=== PATIENT | male | born 1935 | race Caucasian/White ===

== ENCOUNTER 2017-03-18 16:12 | Emergency (ER) | payer MEDICARE ==
[2017-03-18] MEDS ORDERED: Aspirin Low Dose CHEW TAB* 81 MG PO ONE (17:21)
[2017-03-18 17:46] LABS: Hematocrit 40 % (42-52); Hemoglobin 13.8 g/dl (14.0-18.0); Mean Corpuscular HGB Conc 35 g/dl (31-36); Mean Corpuscular Hemoglobin 33 pg (27-31); Mean Corpuscular Volume 97 fL (80-94); Mean Platelet Volume 7 um3 (7.4-10.4); Red Blood Count 4.14 10^6/ul (4.0-5.4); Red Cell Distribution Width 15 % (10.5-15); White Blood Count 8.3 10^3/ul (3.5-10.8)
[2017-03-18 17:59] LABS: Albumin 3.7 g/dL (3.2-5.2); BUN/Creatinine Ratio 23.5 (8-20); Calcium 9.5 mg/dL (8.6-10.3); EGFR African American 117.3 (>60); EGFR Non-African American 91.2 (>60); Globulin 3.4 g/dL (2-4); Potassium 3.4 mmol/L (3.5-5.0); Total Bilirubin 0.7 mg/dL (0.2-1.0); Total Protein 7.1 g/dL (6.4-8.9)
[2017-03-18] MEDS ORDERED: Potassium Chlor TAB* 20 MEQ TAB.ER PO ONE (18:17)
[2017-03-18] MEDS ORDERED: Iohexol 350* (CONTRAST) 500 ML MDV IV ONE (18:53)
[2017-03-18 19:19] VITALS: BP 114/75
--- NOTE | 2017-03-18 19:42 | RAD ---
INDICATION: Decreased bilateral lower extremity pulses. COMPARISON: July 10, 2003. TECHNIQUE: Multidetector CT images were obtained from the lung bases to the feet with 125 mL Omnipaque 350 IV contrast. Full [id number] routine arterial phase and delayed arterial phase of the lower legs. Multiplanar reformation without and with maximum intensity projection. 3-D arterial volume rendering. REPORT: ABDOMINAL AORTA: Severe atherosclerotic plaque of the abdominal aorta with ulcerated plaque along the RIGHT posterior margin at the infrarenal segment. Negative for hemodynamic significant stenosis of the abdominal aorta or aneurysm. Patent celiac axis. Atherosclerotic plaque results in less than 50% stenosis at the SMA. While small size and presence of calcific plaque limits assessment there is suggestion of greater than 60% stenosis at the proximal segment of the bilateral solitary renal arteries. Normal opacification of the inferior mesenteric artery. RIGHT ILIAC and LOWER EXTREMITY ARTERIES: Approximate 50% short segment stenosis at the RIGHT common iliac artery. Multiple stenoses of the RIGHT external iliac artery measuring up to 70%. Up to 60% stenosis at the common femoral artery. Severe segmental stenoses of the superficial femoral artery due to calcific plaque with occlusion at the adductor canal. Collateral reconstitution of the suprageniculate popliteal artery. Calcific plaque results in approximate 50% stenoses at the distal popliteal artery and tibioperoneal trunk. Only faint posterior tibial and peroneal runoff to the RIGHT ankle. Severe RIGHT infrageniculate soft tissue edema. LEFT ILIAC and LOWER EXTREMITY ARTERIES: Occluded LEFT common iliac artery. Collateral reconstitution of the distal external iliac artery. Calcific plaque results in gross complete occlusion of the common femoral artery. Collateral reconstitution of the distal common femoral artery. Segmental stenoses of the superficial femoral artery estimated at greater than 70%. Up to 60% stenoses at the popliteal artery. Only faint 2 vessel runoff to the LEFT ankle at the tibialis posterior and peroneal artery. Severe LEFT infrageniculate soft tissue edema. NON-VASCULAR FINDINGS: Mild RIGHT basilar subsegmental atelectasis. Coronary artery calcifications. Assessment of the abdominal pelvic viscera is limited due to arterial only phase of contrast enhancement. Unremarkable liver and gallbladder. Atrophic pancreas. Multiple calcified granulomas at the normal sized spleen. Negative for CT abnormality of the upper GI, small bowel, or retrocecal appendix. Severe colonic diverticulosis most marked at the descending colon and sigmoid colon without findings of acute diverticulitis. Negative for ascites, free air, hernias. Normal adrenal glands. Symmetric cortical phase enhancement of the kidneys. No conspicuous focal renal lesions or hydronephrosis. Unremarkable nondilated ureters and urinary bladder. Unremarkable seminal vesicles. Negative for lymphadenopathy. Negative for suspicious focal osseous lesions. IMPRESSION: 1. Severe peripheral vascular disease as described. Hemodynamic significant bilateral inflow disease and intrinsic lower extremity stenoses and occlusions with only faint 2 vessel runoff to the bilateral ankles with progression compared with the 2004 exam. 2. Severe bilateral renal artery stenosis with progression compared with the 2004 exam.
--- NOTE | 2017-03-21 07:19 | ED ---
Laci Solitario Angela, scribed for Anam Conklin MD on 03/18/17 at 1646 . Lower Extremity - HPI Summary HPI Summary: This pt is a 82 y/o male, accompanied by his daughter, presenting to [facility] c/o bilateral LE pain, redness, and swelling for 15 years now. Per daughter, pt was at his PCP's office today (Dr. Hatfield) and was told to come to the ED. Daughter reports the pt had pain on his bilateral LE from just trying to wash his feet. Pt notes he didn't have pulses on the left lower extremity over 10 years ago. Daughter states the pt has an appointment on May [address] Magaña for pain management. Pt is heavy every day tobacco smoker. PMHx includes HTN. - History of Current Complaint Chief Complaint: EDExtremityLower Stated Complaint: SWELLING IN FEET Time Seen by Provider: 03/18/17 16:40 Hx Obtained From: Patient, Family/Server Cashier - daughter Mechanism Of Injury: Other - none Onset/Duration: Weeks Severity Initially: Severe Severity Currently: Severe Pain Intensity: 8 Pain Scale Used: 0-10 Numeric Timing: Lasting Weeks Location: Is Discrete @ - bilateral lower extremities Associated Signs And Symptoms: Positive: Swelling, Redness Aggravating Factor(s): Other - palpation PMH/Surg Hx/FS Hx/Imm Hx Cardiovascular History: Reports: Hx Hypercholesterolemia, Hx Hypertension Musculoskeletal History: Reports: Other Musculoskeletal History - lymphedema Infectious Disease History: No Infectious Disease History: Denies: Traveled Outside the [place] in Last 30 Days - Family History Known Family History: Negative: Cardiac Disease, Diabetes - Social History Alcohol Use: None Substance Use Type: Reports: None Smoking Status (MU): Heavy Every Day Tobacco Smoker Review of Systems Negative: Fever, Chills Eyes: Negative ENT: Negative Cardiovascular: Negative Musculoskeletal: Other - pain in bilateral LE Positive: Edema - bilateral LE Skin: Other - redness in bilateral lower extremities All Other Systems Reviewed And Are Negative: Yes Physical Exam - Summary Physical Exam Summary: VITAL SIGNS: Reviewed. GENERAL: Patient is an elderly male who is alert and oriented x3. Patient is not in any acute respiratory distress. HEAD AND FACE: No signs of trauma. No ecchymosis, hematomas or skull depressions. No sinus tenderness. EYES: PERRLA, EOMI x 2, No injected conjunctiva, no nystagmus. EARS: Hearing grossly intact. Ear canals and tympanic membranes are within normal limits. MOUTH: Oropharynx within normal limits. NECK: Supple, trachea is midline, no adenopathy, no JVD, no carotid bruit, no c- spine tenderness, neck with full ROM. CHEST: Symmetric, no tenderness at palpation LUNGS: Clear to auscultation bilaterally. No wheezing or crackles. CVS: Regular rate and rhythm, S1 and S2 present, no murmurs or gallops appreciated. ABDOMEN: Soft, non-tender. No signs of distention. No rebound no guarding, and no masses palpated. Bowel sounds are normal. EXTREMITIES: FROM in all major joints, no cyanosis or clubbing. LE: feet from the mid lower extremities down to the toes with positive pallor. LLE: no pulses. RLE: positive weak pulses. LLE has a small area of white-jamal discoloration and in toe there is necrotic tissue. NEURO: Alert and oriented x 3. No acute neurological deficits. Speech is normal and follows commands. SKIN: Dry and warm Triage Information Reviewed: Yes Vital Signs On Initial Exam: Initial Vitals Temp Pulse Resp BP Pulse Ox 97.1 F 108 20 137/72 96 03/18/17 16:27 03/18/17 16:27 03/18/17 16:27 03/18/17 16:27 03/18/17 16:27 Vital Signs Reviewed: Yes Diagnostics - Vital Signs Vital Signs Temp Pulse Resp BP Pulse Ox 03/18/17 16:27 97.1 F 108 20 137/72 96 - Laboratory Lab Results: Lab Results 03/18/17 03/18/17 03/18/17 Range/Units 17:24 17:24 17:24 WBC 8.3 (3.5-10.8) 10^3/ul RBC 4.14 (4.0-5.4) 10^6/ul Hgb 13.8 L (14.0-18.0) g/dl Hct 40 L (42-52) % MCV 97 H (80-94) fL MCH 33 H (27-31) pg MCHC 35 (31-36) g/dl RDW 15 (10.5-15) % Plt Count 233 (150-450) 10^3/ul MPV 7 L (7.4-10.4) um3 Neut % (Auto) 83.5 H (38-83) % Lymph % (Auto) 11.8 L (25-47) % Lares % (Auto) 4.2 (1-9) % Eos % (Auto) 0.1 (0-6) % Baso % (Auto) 0.4 (0-2) % Absolute Neuts (auto) 6.9 (1.5-7.7) 10^3/ul Absolute Lymphs (auto) 1.0 (1.0-4.8) 10^3/ul Absolute Monos (auto) 0.3 (0-0.8) 10^3/ul Absolute Eos (auto) 0 (0-0.6) 10^3/ul Absolute Basos (auto) 0 (0-0.2) 10^3/ul Absolute Nucleated RBC 0.01 10^3/ul Nucleated RBC % 0.1 Sodium 134 (133-145) mmol/L Potassium 3.4 L (3.5-5.0) mmol/L Chloride 98 L (101-111) mmol/L Carbon Dioxide 29 (22-32) mmol/L Anion Gap 7 (2-11) mmol/L BUN 19 (6-24) mg/dL Creatinine 0.81 (0.67-1.17) mg/dL Est GFR ( Amer) 117.3 (>60) Est GFR (Non-Af Amer) 91.2 (>60) BUN/Creatinine Ratio 23.5 H (8-20) Glucose 126 H (70-100) mg/dL Calcium 9.5 (8.6-10.3) mg/dL Total Bilirubin 0.70 (0.2-1.0) mg/dL AST 17 (13-39) U/L ALT 9 (7-52) U/L Alkaline Phosphatase 109 H (34-104) U/L B-Natriuretic Peptide 101 H ( - 100) pg/mL Total Protein 7.1 (6.4-8.9) g/dL Albumin 3.7 (3.2-5.2) g/dL Globulin 3.4 (2-4) g/dL Albumin/Globulin Ratio 1.1 (1-3) Result Diagrams: 03/18/17 17:24 03/18/17 17:24 Lab Statement: Any lab studies that have been ordered have been reviewed, and results considered in the medical decision making process. - CT CTA bilateral lower extremity CT Interpretation: Positive (See Comments) - IMPRESSION: 1. Severe peripheral vascular disease as described. Hemodynamic significant bilateral inflow disease and intrinsic lower extremity stenoses and occlusions with only faint 2 vessel runoff to the bilateral ankles with progression compared with the 2004 exam. 2. Severe bilateral renal artery stenosis with progression compared with the 2004 exam. ED physician has reviewed this radiology report and agrees. CT Interpretation Completed By: Radiologist Lower Extremity Course/Dx - Course Assessment/Plan: This pt is a 82 y/o male, accompanied by his daughter, presenting to [facility] c/o bilateral LE pain, redness, and swelling for 15 years now. Per daughter, pt was at his PCP's office today (Dr. Hatfield) and was told to come to the ED. Daughter reports the pt had pain on his bilateral LE from just trying to wash his feet. Pt notes he didn't have pulses on the left lower extremity over 10 years ago. Daughter states the pt has an appointment on May [address] Magaña for pain management. Pt is heavy every day tobacco smoker. PMHx includes HTN. Initially, the pt refuses to be transferred to [facility] for evaluation of a vascular surgeon. He only wants to do an US or CTA depending on his kidney function and would like to be discharged against medical advice and follow up with Dr. Hatfield. The only thing he wants is pain medication, but does not want any treatment or any type of surgeries. Test results shows chronic anemia, potassium 3.4, for which he was given potassium chloride, glucose of 126. At this point the pt continues to refuse transfer to another hospital with vascular surgery. Pt will get a CTA and will be discharged home with follow up from Dr. Hatfield since the pt does not want any further treatments. He understands that if he does not see a vascular surgeon he will lose both feet secondary to an arterial occlusion. The pt and daughter signed the Against Medical Advice form and both understand the severe consequences. I ordered a CTA for further evaluation. The pt wants to be discharged home since he doesnt want any interventions and only wants pain management. Again, I explained extensively to the pt and daughter the consequences that will result from not receiving further treatment; however the pt does not want any interventions. Pt is hemodynamically stable, alert and oriented x3. Pt has capacity to decide his further health care. Pt signed the AMA form. The pt does not want to be stay to find out the CTA results, he reports he will follow up on the test results with Dr. Hatfield. Pt will be discharged home with prescription for Percocet. I extensively discussed with the patient the benefits and risk of leaving AMA. I also discussed the alternatives to leaving AMA, however, the patient still insist to leave the hospital AMA.. The primary nurse and the charge nurse also strongly recommended that the patient should not leave AMA. Patient understands the risk of leaving AMA, which includes but is not restricted to . Patient is Alert and oriented times three and patient verbalizes understanding. Patient has full capacity and is cognitively intact. Patient signed the AMA form. Patient was also advised to return to ED if he changes his mind or if the symptoms worsen or other symptoms appear. Patient understands and agrees. - Diagnoses Provider Diagnoses: chronic peripheral arterial disease, acute on chronic ischemic LE Discharge - Discharge Plan Condition: Good Disposition: AGAINST MEDICAL ADVICE Prescriptions: oxyCODONE/Acetamin 10/325(NF) [Percocet 10/325 (NF)] 1 tab PO Q6H PRN #12 tab MDD 4 PRN Reason: Pain Patient Education Materials: Peripheral Artery Disease (ED), Against Medical Advice (ED), Leg Pain (ED) Referrals: James Hatfield MD [Primary Care Provider] - Additional Instructions: Please follow up with Dr. Hatfield regarding your CTA results. RETURN TO THE ED FOR ANY WORSENING SYMPTOMS. The documentation as recorded by the Laci call Angela accurately reflects the service I personally performed and the decisions made by , Anam Conklin MD.
== END 2017-03-18 19:19 | disposition left against medical advice (07) ==
LOC: ED 16:12
DX: I73.9 Peripheral vascular disease, unspecified (principal); I70.1 Atherosclerosis of renal artery; Z53.21 Procedure and treatment not carried out due to patient leaving prior to being seen by health care provider
CPT/HCPCS: 36415; 73706; 80053; 83880; 85025; 99282; A9270-GY; Q9967

== ENCOUNTER 2017-05-18 08:10 | Inpatient (IN) | payer MEDICARE ==
[2017-05-18] MEDS ORDERED: NS 0.9% 1000 ML*IV.FLUID IV ONE (08:32)
[2017-05-18] MEDS ORDERED: metroNIDAZOLE IV 500 MG/100ML* 500 MG/100 ML BAG IVPB ONE (08:41)
[2017-05-18] MEDS ORDERED: Cefepime(*) 2 GM in NS 0.9% 50 ML* 50 ML IVPB ONE (08:41)
[2017-05-18] MEDS ORDERED: Cefepime(*) 2 GM in D5W 50 ML BAG* 50 ML IVPB ONE (09:00)
[2017-05-18] MEDS ORDERED: Vancomycin(*) 1,000 MG VIAL IVPB SCH (09:00)
[2017-05-18 09:04] LABS: Hematocrit 42 % (42-52); Hemoglobin 14.5 g/dl (14.0-18.0); Mean Corpuscular HGB Conc 34 g/dl (31-36); Mean Corpuscular Hemoglobin 33 pg (27-31); Mean Corpuscular Volume 97 fL (80-94); Mean Platelet Volume 8 um3 (7.4-10.4); Platelet Count 84 10^3/ul (150-450); Red Blood Count 4.38 10^6/ul (4.0-5.4); Red Cell Distribution Width 17 % (10.5-15); White Blood Count 13.1 10^3/ul (3.5-10.8)
[2017-05-18] MEDS ORDERED: Hydrocortisone INJ* 100 MG VIAL IV ONE (09:08)
[2017-05-18] MEDS ORDERED: Norepinephrine VIAL* 1 MG/ML 4 ML VIAL ONE (09:09)
[2017-05-18 09:13] LABS: INR 0.97 (0.77-1.02)
--- NOTE | 2017-05-18 09:45 | RAD ---
INDICATION: Change in mental status COMPARISON: None TECHNIQUE: An AP supine portable view obtained at 0905 hours is submitted. FINDINGS: Bones/Soft Tissues: There are no acute bony findings. Cardiomediastinal: The cardiomediastinal silhouette is normal. Lungs: There is right basal infiltrate. There may be minimal left basilar atelectasis. The remaining lung baptiste are clear. Pleura: There are no pleural effusions. Other: None IMPRESSION: RIGHT BASILAR INFILTRATE. SUGGEST FOLLOW-UP
[2017-05-18 09:58] LABS: Urine Appearance Clear; Urine Color Yellow
[2017-05-18] MEDS ORDERED: Morphine INJ* 2 MG/ML 1 ML CARPUJECT IV ONE (09:59)
[2017-05-18] MEDS ORDERED: NS 0.9% IV SCH ×2 (10:00)
[2017-05-18] MEDS ORDERED: NOREPINEPHRINE IV SCH ×2 (10:00)
[2017-05-18] MEDS ORDERED: Vancomycin(*) 1,250 MG IV x ONCE IVPB ONE ×2 (10:00)
[2017-05-18 10:04] LABS: Urine Blood 1+ (Negative); Urine Ketones Negative (Negative); Urine Protein 1+(30 mg/dL) (Negative); Urine Urobilinogen Positive (Negative)
[2017-05-18 10:09] LABS: EGFR Non-African American 111.6 (>60)
[2017-05-18] MEDS ORDERED: Morphine INJ* 2 MG/ML 1 ML SYRINGE (TWO MG - NEW SYRINGE VERSION) IV ONE (11:00)
[2017-05-18] MEDS ORDERED: Morphine INJ* 4 MG/ML 1 ML CARPUJECT IV PRN (11:11)
[2017-05-18] MEDS ORDERED: Ondansetron ODT TAB* 4 MG SL PRN (11:13)
[2017-05-18] MEDS ORDERED: Haloperidol TAB* 1 MG PO PRN (11:13)
[2017-05-18] MEDS ORDERED: Morphine ORAL CONCENTRATE* 5 MG/0.25 ML ORAL.SYRIN PO PRN (11:13)
--- NOTE | 2017-05-18 11:55 | HP ---
H&P (Free Text) History and Physical: CRITICAL CARE MEDICINE DATE: 05/18/17 TIME: 1050 PRIMARY CARE PROVIDER: Jenna. REFERRING PROVIDER: Chad. REASON/CHIEF COMPLAINT: alerted mentation, sepsis HISTORY OF PRESENT ILLNESS: 82 male with declining status living at home. 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 Patient's status at home has been declining with lack of self care, decreased appetite, and just " chain smoking" not really wanting to live. Family expresses patient would not harm self but that they all knew his desire to live was declining. Today he was more lethargic at home. Had been sleeping in his reclining chair last few weeks with malaise. Came in through the ED with blood pressures 80s and 60s. Heart rate 60s. Hypothermic and treated for sepsis and septic shock. Chronic wound infections and skin sloughing of his feet (family explains he was aware about his severe vasculopathy and poor wound healing). Sacral decubitus. Patient lethargic and uncomfortable to touch. Wants to be left alone. REVIEW OF SYSTEMS: As per HPI. Otherwise limited sec to acuity. PAST MEDICAL HISTORY: As per HPI. MEDICATIONS: Reviewed. ALLERGIES: Reviewed. SOCIAL HISTORY: Reviewed. as above. FAMILY HISTORY: Noncontributory at present. PHYSICAL EXAM: Vital Signs: Reviewed. Neurologic: lethargic. perrl. response to pain. follows simple commands. HEENT: anicteric. mm dry Cardiovascular: kimberlyn, S1, S2, 3/6 ivette Respiratory: dec but nonlabored. Abdomen: soft, nt Extremities: multiple areas of skin breakdown, including sacrum, groin, feet with vascular disease evident. Cap refill delayed. Access: piv LABS: Reviewed. IMAGING: Reviewed. MEDICATIONS: Reviewed. ASSESSMENT: 82 M Septic shock sec to cellulitis Septic encephalopathy Acute hypoxic respiratory failure requiring new oxygen Mild lactic acidosis Thrombocytopenia - question consumption alone, Sacral decub stage 3 Chronic foot ulcerations, unstagable PLAN: d/w family at length at bedside on icu arrival they explain a man, with declining status, declining will to live, with severe atherosclerosis and failing foot wounds, etc He always expressed to them he would not want penitentiary. He is not rehabable. We discussed his condition at present, with MODs and difficulty to thrive with this as he is on lveophed, needing central line, ivf, steroids and perhaps more levels of ventilatory therapy. Known DNR/DNI and when we discussed dyanmics and potential treatment options they are all in agreement, he wouldn't want aggressive measure and would prefer comfort alone. Can dc sepsis bundle and non-essential meds. Comfort measures instilled. See orders. Can transfer to floor. Robledo catheter for comfort. Disposition: floor Code Status: DNR, comfort care Critical Care Time: 45min FJoslyn Anderson DO
[2017-05-18] MEDS ORDERED: Morphine INJ* 10 MG/ML 1 ML CARPUJECT ONE (12:32)
[2017-05-18] MEDS ORDERED: Morphine INJ* 10 MG/ML 1 ML CARPUJECT IV ONE (14:18)
[2017-05-18] MEDS ORDERED: Morphine PCA ADULT* 5 MG/ML 30 ML PCA SCH (15:00)
--- NOTE | 2017-05-18 15:07 | DS ---
CRITICAL CARE MEDICINE INTERIM DISCHARGE SUMMARY ADMISSION DATE: 05/18/2017 ICU ADMISSION DATE: 05/18/2017 ICU DISCHARGE DATE: 05/18/2017 PRIMARY CARE PROVIDER: Dr. West. REFERRING PHYSICIAN: Dr. Bonilla. DIAGNOSIS: 1. Septic shock secondary to cellulitis. 2. Septic encephalopathy. 3. Acute hypoxic respiratory failure requiring new oxygen. 4. Mild lactic acidosis on admission. 5. Multifactorial thrombocytopenia. 6. Sacral decubitus, stage 3 7. Chronic foot ulcerations. 8. Relative adrenal insufficiency. MEDICATIONS AT DISCHARGE: Morphine drip and prns. ALLERGIES: None. HOSPITAL COURSE: 82 yeal old male with declining status living at home. 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 Patient's status at home has been declining with lack of self care, decreased appetite, and just "chain smoking" not really wanting to live. Family expresses patient would not harm self but that they all knew his desire to live was declining. More lethargic at home, sleeping in his reclining chair last few weeks with malaise. Came in through the ED with blood pressures 80s and 60s. Heart rate 60s. Hypothermic and treated for sepsis and septic shock. Chronic wound infections and skin sloughing of his feet (due to severe vasculopathy). Sacral decubitus. Patient lethargic and uncomfortable to touch. Wants to be left alone. Treatment options presented. Family all in agreement, patient would not want aggressive care. Comfort measures sought and patient transferred to floor. DISPOSITION: Comfort care. DIET: Comfort. ACTIVITY: as tolerated. CODE STATUS: Do Not Resuscitate. Beth Anderson,
[2017-05-18] MEDS ORDERED: Atropine 1% (ORAL/SL)* 15 ML BTL SL PRN (15:33)
[2017-05-18 16:49] VITALS: BP 0/0
--- NOTE | 2017-05-18 19:53 | ED ---
Laci Solitario Angela, scribed for Tiffani Nogueira MD on 05/18/17 at 0839 . Altered Mental Status - HPI Summary HPI Summary: This pt is a 82 y/o male, accompanied by his son, presenting to [facility] via EMS from home for AMS. Per EMS, pt does not ambulate. EMS reports pt's son called and said he was "not acting normal." EMS states pt is verbal. EMS notes the last time the pt was seen well was yesterday, but the time is unknown. Pt still smokes, per EMS. Son reports that the pt has been "falling downhill for the past week." Pt's daughter is the primary vocational childcare teacher and was taking care of him during this past weekend. Pt is able to move somewhat but has not been able to move in 1 week. Son denies pt has cold, cough, sick contacts, vomiting, diarrhea. Pt's speech was slurred last night, per son. Son reports the pt was last seen well by pt's daughter at around 22:00. 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 Per son, pt refused procedure on his aorta. Pt has had this aorta issue approx since 7 years ago. Son notes pt's wounds on his feet are open and weepy. Pt was supposed to go to the wound clinic in 2 days. Son notes there are NKDA for the pt. No hx of diabetes. Pt's daughter, Shannon, reports he has a sore on his bottom. His visiting nurse was with him yesterday and washed his bottom, but his sore was not treated. Medications pt currently takes (per son): Potassium Cl ER 10 mEq Clopidogrel 75 mg Amlodipine Besylate 10 mg Hydrochlorothiazide 025 mg Gabapentin 300 mg Oxycodone 10-325 At 08:33, pt's rectal temperature is 86F. - History Of Current Complaint Chief Complaint: EDAltMentalStatus Stated Complaint: POSS STROKE Time Seen by Provider: 05/18/17 08:16 Hx Obtained From: Family/Drilling And Production Superintendent - Son, later daughter, EMS Hx From Patient Unobtainable Due To: Altered Mental Status Onset/Duration: Still Present Timing: Lasting Hours Severity Initially: Severe Severity Currently: Severe Character: Lethargy Aggravating Factor(s): Nothing Alleviating Factor(s): Nothing Associated Signs And Symptoms: Positive: Weakness - Allergies/Home Medications Allergies/Adverse Reactions: Allergies Allergy/AdvReac Type Severity Reaction Status Date / Time No Known Drug Allergy Allergy Dizziness Verified 05/18/17 13:40 Home Medications: Home Medications Clopidogrel TAB* [Plavix TAB*] 75 mg PO DAILY 05/18/17 [History Confirmed ] Gabapentin CAP(*) [Neurontin 300 CAP(*)] 300 mg PO TID 05/18/17 [History Confirmed 05/18/17] Halobetasol Propionate [Ultravate] 0.05 % TOPICAL DAILY PRN 05/18/17 [History Confirmed 05/18/17] Hydrochlorothiazide TAB* [Hydrodiuril TAB*] 25 mg PO DAILY 05/18/17 [History Confirmed 05/18/17] Polyethylene Glycol 3350* [Miralax*] 17 gm PO DAILY 05/18/17 [History Confirmed 05/18/17] Potassium Chlor TAB* [Klor Con ER TAB*] 30 meq PO DAILY 05/18/17 [History Confirmed 05/18/17] amLODIPine TAB* [Norvasc 5 mg TAB*] 10 mg PO DAILY 05/18/17 [History Confirmed 05/18/17] oxyCODONE SR TAB(*) [Oxycontin 20 mg (*)] 20 mg PO BID 05/18/17 [History Confirmed 05/18/17] oxyCODONE/Acetamin 5/325 MG* [Percocet 5/325 TAB*] 1 tab PO .Q4-6H PRN 05/18/17 [History Confirmed 05/18/17] PMH/Surg Hx/FS Hx/Imm Hx Previously Healthy: No - open weeping wounds on bilat feet Endocrine/Hematology History: Denies: Hx Diabetes Cardiovascular History: Reports: Hx Hypercholesterolemia, Hx Hypertension, Other Cardiovascular Problems/Disorders - "aorta problem" History: Denies: Hx Renal Disease Musculoskeletal History: Reports: Other Musculoskeletal History - lymphedema Infectious Disease History: Unable to Obtain/Confirm Infectious Disease History: Denies: Traveled Outside the [place] in Last 30 Days - Family History Known Family History: Negative: Cardiac Disease, Diabetes - Social History Alcohol Use: None Substance Use Type: Reports: None Smoking Status (MU): Heavy Every Day Tobacco Smoker Review of Systems - ROS Summary Review of Systems Summary: ROS is limited due to level 5 caveat - AMS Negative: Fever, Chills Negative: Nasal Discharge Negative: Cough Negative: Vomiting, Diarrhea Skin: Other - wounds on feet. Neurological: Other - altered mental status Positive: Other - responds to yes no questions, unable to determine psychological state All Other Systems Reviewed And Are Negative: No Physical Exam - Summary Physical Exam Summary: Appearance: critically ill-appearing, no pain distress, rapid respirations, one word answers Skin: Warm, color reflects adequate perfusion. Bilat feet bandaged with saturation of dressings, open area on sacum. Head: Normal Head/Face inspection Eyes: Conjunctiva clear ENT: Normal ENT inspection Neck: Supple, no nodes, no JVD Respiratory: Lungs clear, diminished breath sounds throughout Cardio: RRR, No murmur, pulses normal, brisk capillary refill Abdomen: soft, nontender Bowel sounds: present Musculoskeletal: Strength Intact/ ROM intact. No calf tenderness. Wounds on bilateral feet. Neuro: Alert, muscle tone normal, facial symmetry, speech normal, sensory/motor intact Psychological: Normal Triage Information Reviewed: Yes Vital Signs On Initial Exam: Initial Vitals Temp Pulse Resp BP Pulse Ox 86.2 F 56 22 96/53 95 05/18/17 08:10 05/18/17 08:10 05/18/17 08:10 05/18/17 08:10 05/18/17 08:10 Vital Signs Reviewed: Yes Completion Of Physical Exam Limited Due To: Altered Mental Status Diagnostics - Vital Signs Vital Signs Temp Pulse Resp BP Pulse Ox 05/18/17 08:10 86.2 F 56 22 96/53 95 - Laboratory Lab Results: Lab Results 05/18/17 05/18/17 05/18/17 Range/Units 08:50 08:50 08:50 WBC 13.1 H (3.5-10.8) 10^3/ul RBC 4.38 (4.0-5.4) 10^6/ul Hgb 14.5 (14.0-18.0) g/dl Hct 42 (42-52) % MCV 97 H (80-94) fL MCH 33 H (27-31) pg MCHC 34 (31-36) g/dl RDW 17 H (10.5-15) % Plt Count 84 L (150-450) 10^3/ul MPV 8 (7.4-10.4) um3 Neut % (Auto) Cargo Services Coordinator Lymph % (Auto) Cargo Services Coordinator [place] % (Auto) Cargo Services Coordinator Eos % (Auto) Cargo Services Coordinator Baso % (Auto) Cargo Services Coordinator Absolute Neuts (auto) Cargo Services Coordinator Absolute Lymphs (auto) Cargo Services Coordinator Absolute Monos (auto) Cargo Services Coordinator Absolute Eos (auto) Cargo Services Coordinator Absolute Basos (auto) Cargo Services Coordinator Absolute Nucleated RBC Cargo Services Coordinator Immature Gran % 10 H (0-9) % Neutrophils % 87 H (38-83) % Band Neutrophils % 10 H (0-8) % Lymphocytes % 2 L (25-47) % Myelocytes % 1 (0-1) % Nucleated RBC % Cargo Services Coordinator Abs Neuts (Manual) 12.8 H (1.5-7.7) 10^3/ul Abs Lymphs (Manual) 0.3 L (1.0-4.8) 10^3/ul Normal RBC Morphology Not Reportable ESR 55 H (0-40) mm/Hr Hem Pathologist Commnt Pending INR (Anticoag Therapy) 0.97 (0.77-1.02) APTT 46.9 H (26.0-36.3) seconds Sodium 128 L (133-145) mmol/L Potassium 3.9 (3.5-5.0) mmol/L Chloride 94 L (101-111) mmol/L Carbon Dioxide 28 (22-32) mmol/L Anion Gap 6 (2-11) mmol/L BUN 34 H (6-24) mg/dL Creatinine 0.68 (0.67-1.17) mg/dL Est GFR ( Amer) 143.6 (>60) Est GFR (Non-Af Amer) 111.6 (>60) BUN/Creatinine Ratio 50.0 H (8-20) Glucose 134 H (70-100) mg/dL Lactic Acid (0.5-2.0) mmol/L Calcium 9.3 (8.6-10.3) mg/dL Total Bilirubin 0.70 (0.2-1.0) mg/dL AST 32 (13-39) U/L ALT 22 (7-52) U/L Alkaline Phosphatase 163 H (34-104) U/L Total Creatine Kinase 39 (10-223) U/L Troponin I 0.01 (<0.04) ng/mL C-Reactive Protein 258.78 H (< 5.00) mg/L B-Natriuretic Peptide ( - 100) pg/mL Total Protein 5.6 L (6.4-8.9) g/dL Albumin 2.6 L (3.2-5.2) g/dL Globulin 3.0 (2-4) g/dL Albumin/Globulin Ratio 0.9 L (1-3) TSH 2.63 (0.34-5.60) mcIU/mL Urine Color Urine Appearance Urine pH (5-9) Ur Specific [place] (1.010-1.030) Urine Protein (Negative) Urine Ketones (Negative) Urine Blood (Negative) Urine Nitrate (Negative) Urine Bilirubin (Negative) Urine Urobilinogen (Negative) Ur Leukocyte Esterase (Negative) Urine WBC (Auto) (Absent) Urine RBC (Auto) (Absent) Urine Bacteria (Absent) Hyaline Casts (Absent) Urine Glucose (Negative) Urine Ascorbic Acid (Negative) Influenza A (Rapid) (Negative) Influenza B (Rapid) (Negative) 05/18/17 05/18/17 05/18/17 Range/Units 08:50 08:50 09:33 WBC (3.5-10.8) 10^3/ul RBC (4.0-5.4) 10^6/ul Hgb (14.0-18.0) g/dl Hct (42-52) % MCV (80-94) fL MCH (27-31) pg MCHC (31-36) g/dl RDW (10.5-15) % Plt Count (150-450) 10^3/ul MPV (7.4-10.4) um3 Neut % (Auto) Lymph % (Auto) [place] % (Auto) Eos % (Auto) Baso % (Auto) Absolute Neuts (auto) Absolute Lymphs (auto) Absolute Monos (auto) Absolute Eos (auto) Absolute Basos (auto) Absolute Nucleated RBC Immature Gran % (0-9) % Neutrophils % (38-83) % Band Neutrophils % (0-8) % Lymphocytes % (25-47) % Myelocytes % (0-1) % Nucleated RBC % Abs Neuts (Manual) (1.5-7.7) 10^3/ul Abs Lymphs (Manual) (1.0-4.8) 10^3/ul Normal RBC Morphology ESR (0-40) mm/Hr Hem Pathologist Commnt INR (Anticoag Therapy) (0.77-1.02) APTT (26.0-36.3) seconds Sodium (133-145) mmol/L Potassium (3.5-5.0) mmol/L Chloride (101-111) mmol/L Carbon Dioxide (22-32) mmol/L Anion Gap (2-11) mmol/L BUN (6-24) mg/dL Creatinine (0.67-1.17) mg/dL Est GFR ( Amer) (>60) Est GFR (Non-Af Amer) (>60) BUN/Creatinine Ratio (8-20) Glucose (70-100) mg/dL Lactic Acid 2.1 H* (0.5-2.0) mmol/L Calcium (8.6-10.3) mg/dL Total Bilirubin (0.2-1.0) mg/dL AST (13-39) U/L ALT (7-52) U/L Alkaline Phosphatase (34-104) U/L Total Creatine Kinase (10-223) U/L Troponin I (<0.04) ng/mL C-Reactive Protein (< 5.00) mg/L B-Natriuretic Peptide 90 ( - 100) pg/mL Total Protein (6.4-8.9) g/dL Albumin (3.2-5.2) g/dL Globulin (2-4) g/dL Albumin/Globulin Ratio (1-3) TSH (0.34-5.60) mcIU/mL Urine Color Yellow Urine Appearance Clear Urine pH 5 (5-9) Ur Specific [place] 1.030 (1.010-1.030) Urine Protein 1+(30 mg/dl) H (Negative) Urine Ketones Negative (Negative) Urine Blood 1+ H (Negative) Urine Nitrate Negative (Negative) Urine Bilirubin 1+ (Negative) Urine Urobilinogen Positive H (Negative) Ur Leukocyte Esterase Negative (Negative) Urine WBC (Auto) Trace(0-5/hpf) (Absent) Urine RBC (Auto) 3+(>10/hpf) H (Absent) Urine Bacteria Absent (Absent) Hyaline Casts Present H (Absent) Urine Glucose Negative (Negative) Urine Ascorbic Acid * H (Negative) Influenza A (Rapid) (Negative) Influenza B (Rapid) (Negative) 05/18/17 Range/Units 09:52 WBC (3.5-10.8) 10^3/ul RBC (4.0-5.4) 10^6/ul Hgb (14.0-18.0) g/dl Hct (42-52) % MCV (80-94) fL MCH (27-31) pg MCHC (31-36) g/dl RDW (10.5-15) % Plt Count (150-450) 10^3/ul MPV (7.4-10.4) um3 Neut % (Auto) Lymph % (Auto) [place] % (Auto) Eos % (Auto) Baso % (Auto) Absolute Neuts (auto) Absolute Lymphs (auto) Absolute Monos (auto) Absolute Eos (auto) Absolute Basos (auto) Absolute Nucleated RBC Immature Gran % (0-9) % Neutrophils % (38-83) % Band Neutrophils % (0-8) % Lymphocytes % (25-47) % Myelocytes % (0-1) % Nucleated RBC % Abs Neuts (Manual) (1.5-7.7) 10^3/ul Abs Lymphs (Manual) (1.0-4.8) 10^3/ul Normal RBC Morphology ESR (0-40) mm/Hr Hem Pathologist Commnt INR (Anticoag Therapy) (0.77-1.02) APTT (26.0-36.3) seconds Sodium (133-145) mmol/L Potassium (3.5-5.0) mmol/L Chloride (101-111) mmol/L Carbon Dioxide (22-32) mmol/L Anion Gap (2-11) mmol/L BUN (6-24) mg/dL Creatinine (0.67-1.17) mg/dL Est GFR ( Amer) (>60) Est GFR (Non-Af Amer) (>60) BUN/Creatinine Ratio (8-20) Glucose (70-100) mg/dL Lactic Acid (0.5-2.0) mmol/L Calcium (8.6-10.3) mg/dL Total Bilirubin (0.2-1.0) mg/dL AST (13-39) U/L ALT (7-52) U/L Alkaline Phosphatase (34-104) U/L Total Creatine Kinase (10-223) U/L Troponin I (<0.04) ng/mL C-Reactive Protein (< 5.00) mg/L B-Natriuretic Peptide ( - 100) pg/mL Total Protein (6.4-8.9) g/dL Albumin (3.2-5.2) g/dL Globulin (2-4) g/dL Albumin/Globulin Ratio (1-3) TSH (0.34-5.60) mcIU/mL Urine Color Urine Appearance Urine pH (5-9) Ur Specific [place] (1.010-1.030) Urine Protein (Negative) Urine Ketones (Negative) Urine Blood (Negative) Urine Nitrate (Negative) Urine Bilirubin (Negative) Urine Urobilinogen (Negative) Ur Leukocyte Esterase (Negative) Urine WBC (Auto) (Absent) Urine RBC (Auto) (Absent) Urine Bacteria (Absent) Hyaline Casts (Absent) Urine Glucose (Negative) Urine Ascorbic Acid (Negative) Influenza A (Rapid) Negative (Negative) Influenza B (Rapid) Negative (Negative) Result Diagrams: 05/18/17 08:50 05/18/17 08:50 Lab Statement: Any lab studies that have been ordered have been reviewed, and results considered in the medical decision making process. - Radiology Chest XR Xray Interpretation: Positive (See Comments) - IMPRESSION: Right basilar infiltrate suggest follow-up. Dr. Nogueira has reviewed this radiology report. Radiology Interpretation Completed By: Radiologist - EKG 08:26 Cardiac Rate: Bradycardia EKG Rhythm: Sinus Bradycardia - at [address] Segment: Non-Specific Ectopy: None EKG Interpretation: Nml AVIVCT. Nml QTc. Nml axis. EKG Comparison: Other - no prior to compare. Re-Evaluation - Re-Evaluation First Eval Re-Evaluation Time: 09:02 Change: Worse Comment: Blood pressure is 61/77, heart rate is 55, respiration is 14, O2 saturation is 96. Pt is started on Levophed. Second Eval Re-Evaluation Time: 09:11 Change: Improved Comment: Blood pressure is 78/43 after fluids. Spoke with pt's family and they still confirm pt is a DNR. Third Eval Re-Evaluation Time: 09:27 Change: Unchanged Comment: Family (son and daughter - Shannon) signed the DNR form at 09:27. Altered Mental Statu Course/Dx - Course Course Of Treatment: 82 yo M brought in by EMS with altered mental status, diagnosed with septic shock in the ED, given sepsis fluids, antibiotics for skin source (cellulits), required pressors in the ED for hypotension. Cedrick hugger and warmed IV fluids used for workman probe temp 86 F in the ED. Pt medications reviewed this visit. Chest XR shows right basilar infiltrate suggest follow-up. EKG shows sinus bradycardia with nml AVIVCT. Nml QTc. Nml axis. with no prior EKG to compare. At 09:02 blood pressure was 61/77 and pt was started on Levophed. At 09:11 - blood pressure is 78/43 after fluids. Spoke with pt's family and they still confirm pt is a DNR. Family (son and daughter - Shannon) signed the DNR form at 09:27. Labs show WBC of 13.1, platelet count of 84, lactic acid is 2.1, CRP of 258.78. I discussed pt's case with Dr. Anderson, jump roll operator, who has agreed to admit the pt. - Diagnoses Differential Diagnosis/HQI/PQRI: CVA, Hypoglycemia, Hypothermia, Hypoxia, Sepsis Discharge Diagnoses: Tobacco abuse disorder, Septic shock, Hypothermia, Hyponatremia, Pneumonia, Cellulitis - Provider Notifications Discussed Care Of Patient With: Rafael Anderson Time Discussed With Above Provider: 09:05 Instructed by Provider To: Other - I discussed pt's case with Dr. Anderson, jump roll operator, who has agreed to admit the pt. - Critical Care Time Critical Care Time: 30-74 min - 45 minutes Discharge - Discharge Plan Condition: Critical Disposition: ADMITTED TO [facility] documentation as recorded by the Lcai call Angela accurately reflects the service I personally performed and the decisions made by me, Tiffani Nogueira MD.
--- NOTE | 2017-05-19 10:34 | DS ---
CC: Dr. James Hatfield * NOTE: DATE OF ADMISSION: 05/18/17 DATE OF : 05/18/17 PRIMARY CARE PHYSICIAN: Dr. James Hatfield. PRIMARY DIAGNOSIS: Septic shock secondary to cellulitis. SECONDARY DIAGNOSES: 1. Septic encephalopathy. 2. Acute hypoxic respiratory failure. 3. Mild lactic acidosis. 4. Multifactorial thrombocytopenia. HOSPITAL COURSE: An 82-year-old man who had been declining at home. He had not been caring for himself, chain smoking, not really want to live. Presented to the hospital, found in septic shock, was admitted to the ICU; however, continued to fail. Care was delivered by Dr. Desmond Anderson. Met with the family and all agreed in transition to comfort care. The patient shortly thereafter. [id number] #: [id number] MTDD
== END 2017-05-18 16:20 | disposition expired | DRG 871 ==
LOC: ED 08:10 → ICU 10:40 → MED 15:08
PROVIDERS: ADMIT Internal Medicine Critical Care Medicine; ATTEND Internal Medicine
DX: A41.53 Sepsis due to Serratia (principal); J96.01 Acute respiratory failure with hypoxia; R65.21 Severe sepsis with septic shock; G93.41 Metabolic encephalopathy; E87.2 Acidosis; L89.153 Pressure ulcer of sacral region, stage 3; D69.6 Thrombocytopenia, unspecified; E27.49 Other adrenocortical insufficiency; L03.119 Cellulitis of unspecified part of limb; L89.899 Pressure ulcer of other site, unspecified stage; Z66 Do not resuscitate; F17.210 Nicotine dependence, cigarettes, uncomplicated
CPT/HCPCS: 36415; 71045; 80053; 81003; 81015; 82550; 83605; 83880; 84443; 84484; 85025; 85060; 85610; 85652; 85730; 86140; 87040; 87077; 87186; 87205; 87502; 87641; 93005; 99285; 99406; J0692; J1720; J2270; J3370; J3490